=== PATIENT | male | born 1985 | race Caucasian/White ===

== ENCOUNTER 2021-02-03 07:46 | Emergency (ER) | payer SELFPAY ==
[2021-02-03] MEDS ORDERED: Ibuprofen 400 MG TAB ONE (09:08)
== END 2021-02-03 09:26 | disposition home or self-care (01) ==
LOC: MADERS 07:46
DX: S92.421A Displaced fracture of distal phalanx of right great toe, initial encounter for closed fracture (principal); S93.402A Sprain of unspecified ligament of left ankle, initial encounter; X50.1XXA Overexertion from prolonged static or awkward postures, initial encounter
CPT/HCPCS: 29515

== ENCOUNTER 2021-04-10 18:06 | Emergency (ER) | payer SELFPAY ==
[2021-04-10] MEDS ORDERED: methylPREDNISolone Sod Succ/PF 125 MG/2 ML VIAL ONE (18:57)
== END 2021-04-10 19:24 | disposition home or self-care (01) ==
LOC: MADERS 18:06
DX: L23.7 Allergic contact dermatitis due to plants, except food (principal)
CPT/HCPCS: 96372; 99282; J2930

== ENCOUNTER 2021-05-30 08:26 | Emergency (ER) | payer SELFPAY ==
[2021-05-30] MEDS ORDERED: methylPREDNISolone Sod Succ/PF 125 MG/2 ML VIAL ONE (09:24)
[2021-05-30] MEDS ORDERED: Morphine 10 MG/ML VIAL ONE (09:30)
== END 2021-05-30 10:12 | disposition home or self-care (01) ==
LOC: EEVIPCON 08:26 → MADERS 08:26
DX: S42.032A Displaced fracture of lateral end of left clavicle, initial encounter for closed fracture (principal); S80.02XA Contusion of left knee, initial encounter; M54.31 Sciatica, right side; Z79.899 Other long term (current) drug therapy; W19.XXXA Unspecified fall, initial encounter
CPT/HCPCS: 96372; J2270; J2930

== ENCOUNTER 2021-05-31 06:13 | Emergency (ER) | payer SELFPAY ==
[2021-05-31] MEDS ORDERED: Ibuprofen 800 MG TAB ONE (06:45)
[2021-05-31] MEDS ORDERED: Dexamethasone 10 MG/ML VIAL ONE (07:56)
[2021-05-31] MEDS ORDERED: Morphine 10 MG/ML VIAL ONE (07:56)
== END 2021-05-31 08:20 ==
LOC: MADERS 06:13
DX: S42.001A Fracture of unspecified part of right clavicle, initial encounter for closed fracture (principal); M54.31 Sciatica, right side
CPT/HCPCS: 96372; 99283; J1100; J2270